=== PATIENT | male | born 1970 | race Caucasian/White ===

== ENCOUNTER 2017-04-30 22:31 | Emergency (ER) | payer OTHER ==
[~2017-04-30] VITALS: Ht 165.1 cm; Wt 59.0 kg
[~2017-04-30 22:31] MED LIST: ALKA-SELTZER P1 EAC9 PO; CIPRO 500MG TA500 MG PO; MEDROL 4MG. DOSE4 MG PO; MUCINEX1200 MG PO; NICOTINE PATCH;21 MG TD; NOMEDS XX; PREDNISONE 20MG20 MG PO; PROVENTIL0.09 MG/A1 IH; ZITHROMAX Z PA250 MG PO
[2017-04-30 23:13] LABS: URINE BILIRUBIN - DIPSTICK NEGATIVE (NEG); URINE BLOOD NEGATIVE (NEG)
[2017-04-30 23:13] LABS: LYMPH # 1.3 K/mm3 (0.7-4.5); LYMPH % 23.8 % (10-50)
[2017-04-30 23:16] LABS: HEMOGLOBIN 17.4 g/dL (14.1-18.0)
--- NOTE | 2017-05-01 00:02 | Emergency Room Report ---
History of Present Illness Time Seen by [id number] Presenting Problem in Triage Pt arrived:Walked Presenting Problem:PAIN IN RIGHT LOWER QUADRANT FOR LAST 3 DAYS. 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 Y Clinical Suspician of Infection? N Mental Status: 1 - Regular (Normal Baseline) Sepsis Risk:Possible Sepsis Risk Have you (or family members/close friends) recently traveled outside the [place]? N If Yes, where/when: Have you had exposure to infectious disease within the past month? N TB? Other? Specify: Source patient, RN notes reviewed, family, RN/MD Exam Limitations no limitations Comment This is a 46-year-old male presenting to the emergency room with RUQ abdominal pain, onset 3 days ago, without any associated fever, nausea, vomiting , diarrhea. Patient stated that pain is worse with movement. Denies any previous similar episodes in the past, any recent travel, any recent exposure to sick contacts. ALLERGIES Coded Allergies: No Known Allergies (08/12/16) Home Medications Active Scripts Azithromycin (Zithromycin (Z-BARRETT) 250MG Tab) 250 MG PO DAILY #6 TAB Prov: 10/14/16 ALBUTEROL (Proventil Hfa Inhaler) 1-2 PUFF IH Q4-6H PRN PRN SOA, wheezing #1 CAN Prov: 10/14/16 Methylprednisolone (Medrol Dose Barrett) 4 MG PO UD #1 BARRETT Prov: 10/14/16 Guaifenesin (Mucinex) 1,200 MG PO BID #28 TAB Prov: 10/14/16 NICOTINE (Nicotine Patch) 21 MG TD DAILY #14 PATCH Ref 1 Prov: 08/14/16 Ciprofloxacin HCl (Cipro 500MG TAB) 500 MG PO BID #14 TAB Prov: 08/14/16 Prednisone (Prednisone 20MG) 20 MG PO BID #10 TAB Prov: 08/14/16 History Medical History General CAD? No Angina: No [place]: No Hypertension? No Hyperlipidemia? No CHF? No DVT? No PE? No COPD? Yes Asthma? No Anemia? No GERD? No Gastric ulcers? No GI Bleed? No Hernia? No Thyroid Problems? No Hypothyroidism? No CVA? No Seizures? No Diabetes? No Insulin Dependent: No Insulin Pump: No Home FSBS? No Renal Insuffiency? No End Stage Renal Disease? No UTI? No Stones? No BPH? No GB Disease: No Nephritic Syndrome? No Asplenia? No Hepatitis? Yes Sickle Cell Disease? No Arthritis? No Migraines? No Cataracts? No Glaucoma? No MRSA? No HIV? No TB? No Anxiety? No Depression? No Cancer? No Immunization Hx DT/Tetanus > 10 Years Ago Flu Refused Pneumonia Refuses Surgical Hx Previous Surgery?N Family History Family Hx Diabetes No CAD No Hypertension No Hyperlipidemia No Cancer No TB No Social History Smoking Hx Smoker: Current Every Day Smoker Tobacco: Yes Type Cigarettes Packs/day 1 1/2 - 2 Packs Alcohol Alcohol: Yes Review of Systems All Other Systems Reviewed and Negative Gastrointestinal abdominal pain Physical Exam Vital Signs Vital Signs Date Time Temp Pulse Resp B/P Pulse O2 O2 Flow FiO2 Ox Delivery Rate 05/01 0008 98.4 82 20 119/78 92 09/ 2336 82 20 119/78 92 04/30 2232 98.4 103 20 141/91 90 - WBC >12,000 or <4,000 or 10% bands? 2 or more SIRS Criteria Met? B/P:119/78 MAP:107 Creatinine >2.0? UA output<0.5ml/kg/hr for 2 hrs? Platelet count >100,000? Lactate >2.0mmol/1? INR >1.2 or PTT > than 60 sec? Evidence of Organ Dysfunction? Provider documented clinical suspician of infection? N Sepsis Criteria Count: 2 Sepsis Risk: Possible Sepsis Risk General Appearance normal appearance, WD/WN, mild distress Neck normal inspection, non-tender, supple, full range of motion Respiratory Status Yes: trachea midline, chest symmetrical, non tender chest. No: respiratory distress. Lung Sounds bilateral: normal breath sounds, lungs clear. 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 No Comment 23:45 - patient reevaluated, appears medically stable, in no acute distress. Advised patient results obtained, need to follow-up with PCP in order to arrange for an outpatient gallbladder ultrasound. Ddx: Cholelithiasis, appendicitis, pancreatitis, bowel obstruction, gastroenteritis,etc. Results/Orders Laboratory Tests 04/30/172254: Urine Color YELLOW, Urine Appearance CLEAR, Urine pH 6.0, Ur Specific [place] 1.025, Urine Protein NEGATIVE, Urine Ketones NEGATIVE, Urine Blood NEGATIVE, Urine Nitrate NEGATIVE, Urine Bilirubin NEGATIVE, Urine Urobilinogen 0.2, Ur Leukocyte Esterase NEGATIVE, Amorphous Sediment TRACE, Urine Mucus TRACE, Urine Glucose NEGATIVE 04/30/172244: Sodium 137, Potassium 3.8, Chloride 99, Carbon Dioxide 30, BUN 15, Creatinine 1.3, Estimated Creat Clear 59, Estimated GFR (MDRD) 59, Glucose 92, Calcium 8.7, Total Bilirubin 0.2, AST 25, ALT 45, Alkaline Phosphatase 96, Total Protein 7.4, Albumin 4.0, Globulin 3.4 H, Albumin/Globulin Ratio 1.2, Amylase 41, Lipase 147 , WBC 5.4, RBC 5.58, Hgb 17.4, Hct 51.1, MCV 91.6, RDW 13.1, Plt Count 169, MPV 7.4, Gran % 65.8, Gran # 3.6, Lymphocytes % 23.8, Monocytes % 6.9, Eosinophils % 2.5, Basophils % 1.0, Lymphocytes # 1.3, Monocytes # 0.4, Eosinophils # 0.1, Basophils # 0.1, PUBS MCHC 34.1, MCH 31.2 Current Medication Orders Sig/Nancy Start time Last Medication Dose Route Stop Time Status Admin Sodium Chloride 10 ML PRN PRN 04/30 2245 DCD IV 05/01 2241 Orders Procedure Date/time Status DIET-NOTHING BY MOUTH 05/[address] ABD & PELVIS W/O CONTRAST 04/[address] ABD/PELVIS REQ 04/30 2305 Active CHEST(2 VIEWS-NOT PORTABLE) 04/30 224 Active IV SALINE LOCK 04/30 2241 Active LIPASE 04/30 2238 Complete CBC WITH AUTO DIFF 04/30 2238 Complete CHEM 12 PROFILE 04/30 2238 Complete AMYLASE 04/30 2238 Complete URINALYSIS/COMPLETE 04/30 2237 Complete XRAY/CT/US XRAY/CT/US CT abdomen, pelvis CT interpretation by discussed w/radiologist CT Results see radiologist's report Departure Departure Time of Disposition 2356 Disposition DC Home or Self Care(routine) Clinical Impression Primary Impression: RUQ abdominal pain Condition STABLE Referrals LUCIA CASTAÑEDA (Family): 2 Days-Call Office for additional outpatient workup (gallbladder ultrasound) Patient Instructions DI for Abdominal Pain-Adult Additional Instructions Please see Lucia Hart within 2-3 days in order to arrange for a glallbladder ultrasound. Discharge Counseling Counseled pt/family regarding diagnosis, test results, medications/RX, home care, follow up needs Comment Please see Lucia Hart within 2-3 days in order to arrange for a glallbladder ultrasound. ED Critical Care Critical Care No at [id number]
[2017-05-01 00:08] VITALS: BP 119/78
--- NOTE | 2017-05-01 05:19 | RADIOLOGY REPORT PS360 ---
CT ABD PELVIS W/O CONTRAST CLINICAL INDICATION: Right lower quadrant pain RLQ PAIN ORDERING PHYSICIAN: Mariusz Hernández MD PATIENT AGE: 46 years COMPARISON: None TECHNIQUE: Axial images obtained with sagittal and coronal reformats. PROCEDURE: Oral Contrast: None IV Contrast: None . FINDINGS: An 8 mm nodule is present in the right lower lobe present as a noncalcified and nonspecific. The liver, gallbladder, spleen, adrenal glands, and pancreas have an unremarkable unenhanced CT appearance. No renal calculi or hydronephrosis. There is a horseshoe kidney No intestinal obstruction or free air is evident. The appendix has an unremarkable appearance. No evidence for diverticulitis. There is mild thickening versus nondistention of the descending colon without stranding of paracolic fat. There is mild thickening of the urinary bladder which is nonspecific and may be due to nondistention. No acute bony anomalies. IMPRESSION: 1. Unremarkable appendix. 2. Horseshoe kidney. No hydronephrosis or renal or ureteral calculi. 3. Thickening of the descending colon which could be due to nondistention or colitis. 4. Thickening of the urinary bladder wall which may be due to nondistention. Cystitis is also a consideration.. 5. Right lower lobe pulmonary nodule at 8 mm. Consider six-month follow-up chest CT
--- NOTE | 2017-05-01 05:32 | RADIOLOGY REPORT PS360 ---
CHEST(2 VIEWS-NOT PORTABLE) HISTORY: [facility] ORDERING PHYSICIAN: Mariusz Hernández MD PATIENT AGE: 46 years COMPARISON: 01/15/2017 FINDINGS: The cardiomediastinal silhouette and pulmonary vascularity are within normal limits. The lungs are clear without infiltrates, suspicious nodules, or pleural effusions. No acute bony abnormalities. IMPRESSION: No change with no acute finding
--- NOTE | 2017-05-01 05:32 | RADIOLOGY REPORT PS360 ---
CHEST(2 VIEWS-NOT PORTABLE) HISTORY: [facility] ORDERING PHYSICIAN: Mariusz Hernández MD PATIENT AGE: 46 years COMPARISON: 01/15/2017 FINDINGS: The cardiomediastinal silhouette and pulmonary vascularity are within normal limits. The lungs are clear without infiltrates, suspicious nodules, or pleural effusions. No acute bony abnormalities. IMPRESSION: No change with no acute finding
== END 2017-05-01 00:08 | disposition home or self-care (01) ==
LOC: ER 22:31
PROVIDERS: Emergency Medicine
DX: R10.11 Right upper quadrant pain (principal); J44.9 Chronic obstructive pulmonary disease, unspecified; F17.210 Nicotine dependence, cigarettes, uncomplicated